=== PATIENT | female | born 1965 | race Caucasian/White ===

== ENCOUNTER 2018-03-29 15:14 | Emergency (ER) | payer MEDICAID ==
[2018-03-29] MEDS ORDERED: fentaNYL 100 MCG/2 ML SDV IVPUSH ONE ×2 (16:36→18:22)
[2018-03-29] MEDS ORDERED: Ondansetron 4 MG/2 ML SDV IVPUSH ONE (16:37)
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
[2018-03-29] MEDS ORDERED: Lactated Ringers 1,000 ML IV SCH (16:45)
[2018-03-29] MEDS: Sodium Chloride 0.9% 10 ML Syringe FLUSH PRN ×2 (17:01→17:26)
[2018-03-29] MEDS ORDERED: Sodium Chloride 0.9% 10 ML Syringe FLUSH ONE (17:14)
[2018-03-29] MEDS ORDERED: Sodium Chloride 0.9% 75 ML IV SCH (17:15)
[2018-03-29] MEDS ORDERED: Iopamidol 612 MG/ML 100 ML Bottle IV SCH (17:15)
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
== END 2018-03-29 18:45 | disposition home or self-care (01) ==
LOC: JP.ED 15:14
DX: S20.211A Contusion of right front wall of thorax, initial encounter (principal); Z91.018 Allergy to other foods; Z87.891 Personal history of nicotine dependence; V86.52XA Driver of snowmobile injured in nontraffic accident, initial encounter
CPT/HCPCS: 36415; 71260; 80048; 85025; 96361; 96374; 96375; 99284; J2405; J3010; J7030; J7120; Q9967

== ENCOUNTER 2018-03-31 14:04 | Emergency (ER) | payer MEDICAID ==
[2018-03-31] MEDS ORDERED: Ketorolac 60 MG/2 ML SDV IM ONE (14:15)
[2018-03-31] MEDS ORDERED: Ketorolac 60 MG/2 ML SDV ONE (14:51)
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
[2018-03-31] MEDS ORDERED: Cyclobenzaprine 10 MG Tab PO ONE (16:40)
== END 2018-03-31 16:59 | disposition home or self-care (01) ==
LOC: JP.ED 14:04
DX: M54.6 Pain in thoracic spine (principal); F17.210 Nicotine dependence, cigarettes, uncomplicated; Z91.013 Allergy to seafood
CPT/HCPCS: 72072; 81001; 96372; 99284; A9270; J1885